=== PATIENT | male | born 1950 | race Caucasian/White ===

== ENCOUNTER 2016-11-29 09:58 | Emergency (ER) | payer BC ==
[2016-11-29 11:32] VITALS: BP 151/78
--- NOTE | 2016-11-29 11:53 | UC ---
FLU HPI - HPI Summary HPI Summary: 36 y/o male with cardiac history, DM presents with ear pain x 1 day, productive cough with green phlegm since monday, sore throat, fatigue. denies muscle aches, bowel problems, fever, chills. states typically gets one episodes of cough with "green crap" yearly. no recent abx use - History of Current Complaint Chief Complaint: UCRespiratory Stated Complaint: COUGH Time Seen by Provider: 11/29/16 11:26 Hx Obtained From: Patient Onset/Duration: Gradual Onset, Lasting Days, Worse Since - daily Severity Currently: Mild Severity Initially: Moderate - Allergy/Home Medications Allergies/Adverse Reactions: Allergies Allergy/AdvReac Type Severity Reaction Status Date / Time Med that caused muscle cramps Allergy Muscle Ache Uncoded 11/29/16 11:36 Home Medications: Home Medications Aspirin [Aspirin 81 MG TAB] 81 mg PO DAILY 11/29/16 [History Confirmed 11/29/16] Losartan TAB* [Cozaar TAB*] 100 mg PO DAILY 11/29/16 [History Confirmed 11/29/16 ] PARoxetine HCL TAB* [Paxil TAB*] 40 mg PO DAILY 11/29/16 [History Confirmed 12/06] Pioglitazone HCl 30 mg PO DAILY 11/29/16 [History Confirmed 11/29/16] Simvastatin [Zocor 40 MG (NF)] 40 mg PO QPM 11/29/16 [History Confirmed 11/29/16 ] Sitagliptin Phosphate [Januvia] 100 mg PO DAILY 11/29/16 [History Confirmed 12/06] Ticagrelor* [Brilinta*] 90 mg PO BID 11/29/16 [History Confirmed 11/29/16] PMH/Surg Hx/FS Hx/Imm Hx Previously Healthy: No - cardiac history Cardiovascular History: Cardiac Disease, Hypertension - Surgical History Surgical History: Yes Surgery Procedure, Year, and Place: cardiac bypass, right knee, right wrist - Social History Alcohol Use: None Substance Use Type: None Smoking Status (MU): Former Smoker Review of Systems Constitutional: Fatigue ENT: Sinus Congestion, Sinus Pain/Tenderness Respiratory: Shortness Of Breath, Cough Is Patient Immunocompromised?: No All Other Systems Reviewed And Are Negative: Yes Physical Exam Triage Information Reviewed: Yes Appearance: Well-Appearing, No Pain Distress, Well-Nourished Vital Signs: Initial Vital Signs Temp 98 F 11/29/16 11:24 Pulse 71 11/29/16 11:24 Resp 16 11/29/16 11:24 BP 151/78 11/29/16 11:24 Pulse Ox 98 11/29/16 11:24 Vital Signs Reviewed: Yes Eyes: Positive: Conjunctiva Clear ENT: Positive: Hearing grossly normal, Pharyngeal erythema - minimal, TM bulging - b/l, TM red, Other: - tenderness over b/l frontal/ max sinuses Respiratory: Positive: Chest non-tender, Lungs clear, Normal breath sounds, No respiratory distress, No accessory muscle use. Negative: Rhonchi, Stridor, Wheezing Cardiovascular: Positive: RRR, Pulses Normal Abdomen Description: Positive: Nontender, No Organomegaly, Soft, Bruit. Negative: CVA Tenderness (R), CVA Tenderness (L) Neurological Exam: Normal Psychological Exam: Normal Flu Course/Dx - Course Course Of Treatment: acute sinusitis with AOM b/l , increase fluids, tylenol/ motrin for pain, ABX given, follow up with PCP - Differential Dx/Diagnosis Differential Diagnosis/HQI/PQRI: Broncholiolitis, Influenza, RSV, Upper Respiratory Infection Provider Diagnoses: Acute sinutisis with AOM b/l Discharge - Discharge Plan Condition: Good Disposition: HOME Prescriptions: Amoxicillin/Clavulanate TAB* [Augmentin TAB 875*] 875 mg PO BID #14 tab Dextromethorphan-Benzocaine [Cepacol Sore Throat & Cou] 1 judi MT Q6H PRN #20 judi PRN Reason: cough, sore throat Patient Education Materials: Sinusitis (ED), Otitis Media (ED) Additional Instructions: - INcrease fluid intake - Take antibiotics twice a day for 7 days - if develop shortness of breath, chest pain, fever >102 return to UC or ER - FOllow up with primary physician within 7 days - cough drops for sore throat, cough
== END 2016-11-29 11:59 | disposition home or self-care (01) ==
LOC: UCCORT 09:58
DX: H66.93 Otitis media, unspecified, bilateral (principal); J01.90 Acute sinusitis, unspecified; E11.9 Type 2 diabetes mellitus without complications; I10 Essential (primary) hypertension; Z95.1 Presence of aortocoronary bypass graft; Z87.891 Personal history of nicotine dependence
CPT/HCPCS: 99202; G0463